=== PATIENT | male | born 1980 | race Two or more races ===

== ENCOUNTER 2017-02-04 12:50 | Emergency (ER) | payer MEDICAID, MEDICARE ==
[~2017-02-04] VITALS: Ht 182.9 cm; Wt 87.3 kg
[~2017-02-04 12:50] MED LIST: CARB200T
[2017-02-04 12:57] VITALS: BP 126/81
== END 2017-02-04 17:53 | disposition left against medical advice (07) ==
LOC: ER 12:50
DX: R05 Cough (principal); Z53.21 Procedure and treatment not carried out due to patient leaving prior to being seen by health care provider

== ENCOUNTER 2017-02-04 21:17 | Emergency (ER) | payer MEDICAID ==
[~2017-02-04] VITALS: Ht 182.9 cm; Wt 81.6 kg
[2017-02-04 22:37] VITALS: BP 134/76
== END 2017-02-04 23:12 | disposition home or self-care (01) ==
LOC: ER 21:25
DX: H10.9 Unspecified conjunctivitis (principal); J06.9 Acute upper respiratory infection, unspecified; Z88.1 Allergy status to other antibiotic agents